=== PATIENT | female | born 1955 | race Caucasian/White ===

== ENCOUNTER 2024-11-07 07:54 | Day surgery (SDC) | payer MEDICARE, BC ==
--- NOTE | 2024-11-03 15:46 | ELECTROCARDIOGRAPH REPORT ---
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 HUMA Bell Measurements Intervals [place] Rate: 72 P: 45 MN: 135 QRS: 15 QRSD: 93 T: 41 QT: 393 QTc: 431 Interpretive Statements Sinus rhythm Low voltage, precordial leads Electronically Signed On 11-03-2024 19:33:[address] HUMA Bell Please click the below link to view image of tracing.
[2024-11-03 16:09] LABS: BASOPHILS % (AUTO) 0.7 % (0-1); EOSINOPHILS # (AUTO) 0.2 X10'3 (0-0.9); EOSINOPHILS % (AUTO) 2.6 % (0-6); LYMPHOCYTES % (AUTO) 15.2 % (21-51); MEAN CORPUSCULAR HEMOGLOBIN 30.5 PG (27.0-31.0); MEAN CORPUSCULAR HGB CONC 34.6 g/dL (33.0-36.5); MEAN CORPUSCULAR VOLUME 88.1 FL (78-98); MEAN PLATELET VOLUME 6.7 FL (7.4-10.4); MONOCYTES # (AUTO) 0.5 X10'3 (0-0.9); MONOCYTES % (AUTO) 7.5 % (2-12); NEUTROPHILS # (AUTO) 4.8 X10'3 (1.8-7.7); PRE OP HEMATOCRIT 42.3 % (35.0-45.0); PRE OP HEMOGLOBIN 14.6 g/dL (12.0-16.0); PRE OP PLATELET COUNT 252 X10'3 (140-440); PRE OP WHITE BLOOD COUNT 6.5 10'3 (4.8-10.8); RED CELL DISTRIBUTION WIDTH 12.7 % (11.5-14.5)
[2024-11-03 16:12] LABS: ALBUMIN/GLOBULIN RATIO 1.3 (1.1-1.5); ALKALINE PHOSPHATASE 87 IU/L (46-116); BLOOD UREA NITROGEN 15 MG/DL (7-18); BUN/CREATININE RATIO 26.8 (10.0-20.0); CALCIUM 9.1 MG/DL (8.5-10.1); CHLORIDE 106 MMOL/L (99-107); CREATININE 0.56 MG/DL (0.40-0.90); PRE OP ALT 31 U/L (30-65); PRE OP ANION GAP 6 (8-16); PRE OP AST 36 U/L (10-37); PRE OP BILIRUB, TOTAL 0.3 MG/DL (0.0-1.0); PRE OP GLUCOSE 90 MG/DL (70-104); PRE OP POTASSIUM 4.2 MMOL/L (3.4-5.1); PRE OP SODIUM 141 MMOL/L (135-145); TOTAL CARBON DIOXIDE 28.8 MMOL/L (24-32); TOTAL PROTEIN 7.2 G/DL (6.4-8.2); eGFR > 90 ML/MIN
[~2024-11-07] VITALS: Ht 157.5 cm; Wt 61.8 kg
[2024-11-07] VITALS (10 sets, daily range): BP systolic 99–130; BP diastolic 63–84; PULSE 67–87; RESP 10–16; TEMP 97.3; O2SAT 92–100
[2024-11-07] MEDS: ceFAZolin 2gm in dextrose, iso 50 ML IV ONE (05:30)
[~2024-11-07 07:54] MED LIST: ASPI-611 PO; CALC600T61 PO; CHOL100017 PO; CYAN100097 PO; EZET10TA48 PO; GLUC1CAP8 PO; LEVO100T9 PO; LIDOcaine 2% (20mg/ml) 5ml vial ONE; MULT-1249 PO; PRE1T PO; dexamethasone sod phosphate 4mg/ml inj. ONE; fentaNYL/PF 50MCG/1 ML 2ML syringe ONE; glycopyrrolate 0.2mg/ml inj ONE; midazolam 1 mg/ML 2ml injection ONE; morphine 4 MG/ML inj SYRINge ONE; neostigmine methylsulfate 1 MG/ML 10ml vial ONE; ondansetron/PF 4mg/2ml inj ONE; propofol inj 20 ML IV ONE; rocuronium 10mg/ml inj IV ONE
[2024-11-07] MEDS: famotidine 20mg tablet PO ONE (08:46)
[2024-11-07] MEDS: ringers solution, lacted 1,000 ML IV SCH (08:47)
[2024-11-07] MEDS ORDERED: ondansetron/PF 4mg/2ml inj IV PRN (08:50)
[2024-11-07] MEDS ORDERED: morphine 4 MG/ML inj SYRINge IV PRN (08:50)
[2024-11-07] MEDS ORDERED: ringers solution, lacted 1,000 ML IV SCH (08:50)
[2024-11-07] MEDS ORDERED: fentaNYL/PF 50MCG/1 ML 2ML syringe IV PRN ×2 (08:50)
[2024-11-07] MEDS ORDERED: morphine 2 MG/ML inj. syringe IV PRN (08:50)
[2024-11-07] MEDS ORDERED: labetalol 20mg/4ml (5mg/ml) syringe IV PRN (08:50)
[2024-11-07] MEDS ORDERED: LIDOcaine 2% (20mg/ml) 5ml vial ONE (11:06)
[2024-11-07] MEDS ORDERED: BUPIVAcaine/PF 2.5mg/ml (0.25%) 10ml vial ONE (11:06)
[2024-11-07] MEDS ORDERED: fentaNYL/PF 50MCG/1 ML 2ML syringe ONE (11:16)
[2024-11-07] MEDS ORDERED: midazolam 1 mg/ML 2ml injection ONE (11:16)
--- NOTE | 2024-11-07 13:28 | OPERATIVE REPORT ---
Operative Report Providers to ~ Date of Procedure: Nov 07, 2024 Pre-Operative Diagnosis: Carpal tunnel right wrist Post-Operative Diagnosis SAME as PRE-Op Procedure Performed Right wrist open carpal tunnel release Surgeon: Jean-Claude Love MD Ed Tech None Anesthesiologist: Brett Bruce Type of Anesthesia: Other Findings: Estimated Blood Loss: None Specimen Removed: None Description of Procedure: The patient is a 69-year-old with carpal tunnel syndrome refractory to nonsurgical treatment. Surgery is indicated to relieve symptoms. Consent was obtained from the patient and risks and benefits were explained. The patient was brought to the operating room where the arm was prepped and draped in usual manner. Local anesthetic was infiltrated just proximal to the carpal tunnel and the forearm tourniquet was inflated to 250 mmHg. A 3 cm incision was made in the palm ulnar to the thenar crease in line with the radial side of the ring finger dissecting down to the transverse carpal ligament. A straight incision was made in line with the skin incision in the transverse carpal ligament and the median nerve was identified in the carpal canal. The nerve was protected while the ligament was divided distally to the transverse arch and proximally to the wrist crease followed by division of the forearm fascia. The nerve was decompressed at this point so the incision was irrigated and closed with nylon suture. A sterile dressing was applied and the tourniquet was released. The hand perfused well and the patient was taken to the recovery room in stable condition. The patient tolerated the procedure well. JEAN-CLAUDE LOVE Jr., MD Nov 07, 2024 13:28
== END 2024-11-07 13:20 | disposition home or self-care (01) ==
LOC: PAS 07:54
PROVIDERS: ATTEND Orthopaedic Surgery Hand Surgery
DX: G56.01 Carpal tunnel syndrome, right upper limb (principal); Z79.899 Other long term (current) drug therapy; Z98.890 Other specified postprocedural states; M35.3 Polymyalgia rheumatica; M81.0 Age-related osteoporosis without current pathological fracture; M19.90 Unspecified osteoarthritis, unspecified site; E78.5 Hyperlipidemia, unspecified
CPT/HCPCS: 36415; 64721; 80053; 82948; 85025; 93005; A4215; A6222; A6449; J0690; J2003; J2250; J3010; J3490; J7030; J7120; Z7506; Z7512; J1100; J2270; J2405; J2704; J2710